=== PATIENT | female | born 1960 | race American Indian/Alaskan Native ===

== ENCOUNTER 2016-11-11 12:26 | Outpatient (CLI) | payer MEDICARE ==
--- NOTE | 2016-11-11 14:29 | Mammography Report ---
BILATERAL MAMMOGRAM: FINDINGS: The breasts are almost entirely fat (<25% glandular). No mass, distortion, suspicious calcification, or skin change is seen. There no significant changes when compared to her prior study in April 2012. CAD was utilized. IMPRESSION: Negative mammogram. There is no mammographic evidence of malignancy. RECOMMENDATION: Follow-up per ACS guidelines. BI-RADS CATEGORY: 1 = Negative ACR BI-RADS MAMMOGRAPHIC CODES: 0 = Needs additional imaging evaluation; 1 = Negative; 2 = Benign; 3 = Probably benign; 4 = Suspicious; 5 = Malignant; 6 = Known biopsy-proven malignancy COMMENT: 1. Dense breast tissue, i.e., adenosis, fibrocystic changes, etc., may obscure an underlying neoplasm. 2. Approximately 10% of cancers are not detected with mammography. 3. A negative mammography report should not delay biopsy if a clinically suspicious mass is present. COMMENT: Patient follow-up letters are generated in [employer].
== END 2016-11-11 12:27 | disposition home or self-care (01) ==
LOC: MAMMO 12:26
PROVIDERS: ATTEND General Practice
DX: Z12.31 Encounter for screening mammogram for malignant neoplasm of breast (principal)
CPT/HCPCS: 77067; G0202

== ENCOUNTER 2017-09-05 10:40 | Emergency (ER) | payer MEDICARE ==
[2017-09-05] MEDS ORDERED: ASPIRIN PO ONE (12:07)
[2017-09-05 13:02] LABS: Basophils % (Auto) 0.3 % (0.0-1.8); Eosinophils # (Auto) 0.1 K/mm3 (0.0-0.4); Eosinophils % (Auto) 0.9 % (0.0-4.3); Hematocrit 38.6 % (30.3-42.9); Hemoglobin 12.7 gm/dl (10.1-14.3); Lymphocytes % (Auto) 22.8 % (13.4-35.0); Mean Corpuscular HGB Conc 33 % (30-34); Mean Corpuscular Hemoglobin 29 pg (28-32); Mean Corpuscular Volume 88 fl (79-97); Monocytes # (Auto) 0.3 K/mm3 (0.0-0.8); Monocytes % (Auto) 3.7 % (0.0-7.3); Platelet Count 277 K/mm3 (140-440); Red Blood Count 4.41 M/mm3 (3.65-5.03); Red Cell Distribution Width 14.3 % (13.2-15.2)
[2017-09-05 13:21] LABS: BUN/Creatinine Ratio 27; Blood Urea Nitrogen 16 mg/dL (7-17); Calcium 9.5 mg/dL (8.4-10.2); Hemolysis Index 5
[2017-09-06] MEDS ORDERED: TORADOL IM ONE (03:11)
--- NOTE | 2017-09-06 03:12 | XRay Report ---
FINAL REPORT EXAM: XR CHEST 1V AP HISTORY: chest pain COMPARISON: None available. FINDINGS: Frontal view(s) of the chest obtained. Cardiac silhouette within normal limits. No gross consolidation or effusion. No pneumothorax. IMPRESSION: No grossly acute findings.
--- NOTE | 2017-09-06 03:15 | Emergency Department Report ---
ED General Adult HPI - General Chief complaint: Chest Pain Stated complaint: C/P X2 WKS, L ARM NUMBNESS Time Seen by Provider: 09/06/17 02:51 Source: patient Mode of arrival: Ambulatory Limitations: No Limitations - History of Present Illness Initial comments: Patient is 57 years old female history of hypertension, diabetes and arthritis. Patient presented to the ER with the chief complaint all cough shortness of breath and right-sided chest pain for the last 2 weeks. Patient stated that her chest pain increased when she is coughing and moving her arm. She denied any fever nausea or vomiting. -: Gradual, week(s) Location: chest - Related Data Allergies Allergy/AdvReac Type Severity Reaction Status Date / Time No Known Allergies Allergy Unverified 11/11/16 12:27 ED Review of Systems ROS: Stated complaint: C/P X2 WKS, L ARM NUMBNESS Other details as noted in HPI Comment: All other systems reviewed and negative Constitutional: denies: chills, fever Respiratory: cough, shortness of breath. denies: SOB with exertion, SOB at rest , wheezing Cardiovascular: chest pain. denies: palpitations, dyspnea on exertion, orthopnea, edema, syncope, paroxysmal nocturnal dyspnea Gastrointestinal: denies: abdominal pain, nausea, vomiting, diarrhea, constipation, hematemesis, hematochezia Genitourinary: denies: urgency, hematuria Musculoskeletal: denies: back pain, joint swelling Neurological: denies: headache, weakness, numbness, paresthesias, confusion, abnormal gait, vertigo ED Past Medical Hx - Past Medical History Previous Medical History?: Yes Hx Hypertension: Yes Hx Diabetes: Yes Hx Arthritis: Yes - Surgical History Past Surgical History?: Yes Additional Surgical History: Tubaligation, Hysterectomy - Social History Smoking Status: Never Smoker Substance Use Type: Prescribed ED Physical Exam - General Limitations: No Limitations General appearance: alert, in no apparent distress - Head Head exam: Present: atraumatic, normocephalic - Eye Eye exam: Present: normal appearance, PERRL - ENT ENT exam: Present: normal exam, normal orophraynx, mucous membranes moist - Neck Neck exam: Present: normal inspection, full ROM. Absent: tenderness, meningismus, lymphadenopathy, thyromegaly - Respiratory Respiratory exam: Present: normal lung sounds bilaterally, chest wall tenderness. Absent: respiratory distress, wheezes, rales, rhonchi, stridor, accessory muscle use, decreased breath sounds, prolonged expiratory - Cardiovascular Cardiovascular Exam: Present: regular rate, normal rhythm, normal heart sounds - GI/Abdominal GI/Abdominal exam: Present: soft, normal bowel sounds. Absent: distended, tenderness, guarding, rebound, rigid, organomegaly, mass, bruit, pulsatile mass , hernia - Extremities Exam Extremities exam: Present: normal inspection, full ROM, normal capillary refill. Absent: tenderness, pedal edema, joint swelling, calf tenderness - Back Exam Back exam: Present: normal inspection. Absent: tenderness, CVA tenderness (R), CVA tenderness (L), muscle spasm, paraspinal tenderness, vertebral tenderness - Neurological Exam Neurological exam: Present: alert, oriented X3, CN II-XII intact, normal gait, reflexes normal - Skin Skin exam: Present: warm, intact, normal color. Absent: cyanosis ED Course Vital Signs 09/05/17 09/06/17 09/06/17 12:01 03:13 03:16 Temperature 98.4 F Pulse Rate 82 53 L Respiratory 18 22 Rate Blood Pressure 137/85 175/71 O2 Sat by Pulse 97 99 100 Oximetry 09/06/17 09/06/17 09/06/17 03:22 03:30 03:46 Temperature Pulse Rate 66 51 L Respiratory 18 21 16 Rate Blood Pressure 175/71 198/87 O2 Sat by Pulse 98 99 Oximetry 09/06/17 09/06/17 09/06/17 04:00 04:16 04:30 Temperature Pulse Rate 68 54 L 65 Respiratory 21 17 17 Rate Blood Pressure 179/74 179/74 176/83 O2 Sat by Pulse 99 99 99 Oximetry - Reevaluation(s) Reevaluation #1: 09/06/17 05:00 Patient stated that she is feeling much better. Patient denied any chest pain or shortness of breath. She denied any weakness numbness or tingling sensation. 09/06/17 05:00 ED Medical Decision Making - Lab Data Result diagrams: 09/05/17 12:40 09/05/17 12:40 - EKG Data -: EKG Interpreted by Oh EKG shows normal: sinus rhythm Rate: normal - EKG Data Interpretation: no acute changes - Radiology Data Radiology results: report reviewed Referring Physician: GIACOMO EDUARDO Patient Name: FRANKLIN MORRIS Date of : 1960 Sex: Female Report Date: 2017-09-05 Report Status: Finalized Findings [facility] [address] [place] [address] XRay Report Signed Patient: FRANKLIN MORRIS MR#: [id number] : 1960 Acct:[id number] Age/Sex: 57 / F ADM Date: 09/05/17 Loc: ED Attending Dr: Ordering Physician: GIACOMO EDUARDO Date of Service: 09/06/17 Procedure(s): XR chest 1V ap Accession Number(s): [id number] cc: GIACOMO EDUARDO Fluoro Time In Minutes: FINAL REPORT EXAM: XR CHEST 1V AP HISTORY: chest pain COMPARISON: None available. FINDINGS: Frontal view(s) of the chest obtained. Cardiac silhouette within normal limits. No gross consolidation or effusion. No pneumothorax. IMPRESSION: No grossly acute findings. Transcribed By: LMA Dictated By: FRANKIE HECK MD Electronically Authenticated By: FRANKIE HECK MD Signed Date/Time: 09/05/172308 DD/ 08 TD/TT: 09/05/172308 Critical care attestation.: If time is entered above; I have spent that time in minutes in the direct care of this critically ill patient, excluding procedure time. ED Disposition Clinical Impression: Chest pain, Acute bronchitis, Costochondritis, acute Disposition: DC-01 TO HOME OR SELFCARE Is pt being admited?: No Condition: Stable Instructions: Chest Pain (ED), Acute Bronchitis (ED), Costochondritis (ED) Referrals: BRIANNA VENEGAS MD [Primary Care Provider] - 3-5 Days
[2017-09-06 05:09] VITALS: BP 188/86
== END 2017-09-06 05:21 | disposition home or self-care (01) ==
LOC: ED 10:40
DX: J20.9 Acute bronchitis, unspecified (principal); M94.0 Chondrocostal junction syndrome [Tietze]; I10 Essential (primary) hypertension; E11.9 Type 2 diabetes mellitus without complications; M19.90 Unspecified osteoarthritis, unspecified site
CPT/HCPCS: 36415; 71045; 80048; 84484; 85025; 85379; 93005; 93010; 96372; 99284; J1885